=== PATIENT | male | born 1960 ===

== ENCOUNTER 2020-11-14 06:45 | Outpatient (CLI) | payer BC | END 2020-11-14 23:59 | disposition home or self-care (01) | LOC: LAB 06:45 | PROVIDERS: ATTEND Internal Medicine Gastroenterology | DX: Z01.812 Encounter for preprocedural laboratory examination (principal); Z20.822 Contact with and (suspected) exposure to COVID-19 ==

== ENCOUNTER 2020-11-17 13:38 | Day surgery (SDC) | payer BC ==
[2020-11-17] MEDS ORDERED: PROPOFOL 200 MG/20 ML BOTTLE IV ONE (13:39)
[2020-11-17] MEDS ORDERED: IRR STERIL WATER FOR IRR 1000 ML BOTTLE IR ONE (13:39)
[2020-11-17] MEDS ORDERED: LIDOCAINE-MPF 2% 5 ML VIAL IJ ONE (13:39)
[2020-11-17 14:17] LABS: CREATININE 1.5 mg/dL (0.6-1.3); POTASSIUM 3.8 mmol/L (3.5-5.1)
[2020-11-17 14:22] LABS: BILIRUBIN,TOTAL 1.2 mg/dL (0.2-1.0); TOTAL PROTEIN, SERUM 7.9 g/dL (6.4-8.2)
[2020-11-17 14:23] LABS: HEMATOCRIT 40.9 % (36.7-47.1); MEAN CORPUSCULAR HEMOGLOBIN 20.7 uug (23.8-33.4); MEAN CORPUSCULAR VOLUME 66.5 fL (73.0-96.2); PLATELET COUNT (AUTO) 218 K/uL (152-348)
[2020-11-17 14:24] LABS: *BILIRUBIN,URIN NEGATIVE (NEGATIVE); *BLOOD, URINE NEGATIVE (NEGATIVE); *CLARITY,URINE CLEAR (CLEAR); *COLOR,URINE YELLOW (YELLOW); *KETONES,URINE NEGATIVE (NEGATIVE); *UROBILINOGEN,URINE 0.2 E.U./dl (NORMAL); LEUKOCYTE ESTERASE ,URINE NEGATIVE (NEGATIVE); NITRITE, URINE NEGATIVE (NEGATIVE); PH,URINE 5.5 (5.0-8.0); UGLUCOSE NEGATIVE (NEGATIVE)
== END 2020-11-17 17:00 | disposition home or self-care (01) ==
LOC: DS 13:38
PROVIDERS: ATTEND Internal Medicine Gastroenterology
DX: Z12.11 Encounter for screening for malignant neoplasm of colon (principal); K64.8 Other hemorrhoids; K63.89 Other specified diseases of intestine; Z79.899 Other long term (current) drug therapy; Z98.890 Other specified postprocedural states
CPT/HCPCS: 36415; 45378; 71045; 80053; 81003; 85025; 85730; 93005; J7120; A4217; A4663; J3490

== ENCOUNTER 2021-10-21 17:18 | Emergency (ER) | payer BC ==
[~2021-10-21] VITALS: Ht 172.7 cm; Wt 72.6 kg
[2021-10-21] MEDS ORDERED: ONDANSETRON 4 MG/2 ML VIAL ONE (17:27)
[2021-10-21] MEDS ORDERED: MORPHINE SULFATE 4 MG/1 ML DISP.SYRIN ONE ×2 (17:27→19:13)
[2021-10-21 17:41] LABS: HEMATOCRIT 39.1 % (36.7-47.1); MEAN CORPUSCULAR HEMOGLOBIN 24.7 uug (23.8-33.4); MEAN CORPUSCULAR VOLUME 74.5 fL (73.0-96.2); PLATELET COUNT (AUTO) 181 K/uL (152-348)
[2021-10-21] MEDS ORDERED: ONDANSETRON 4 MG/2 ML VIAL IV ONE (17:45)
[2021-10-21] MEDS ORDERED: MORPHINE SULFATE 4 MG/1 ML DISP.SYRIN IV ONE ×2 (17:45→19:15)
[2021-10-21 17:50] LABS: CREATININE 1.2 mg/dL (0.6-1.3); POTASSIUM 3.4 mmol/L (3.5-5.1)
[2021-10-21 17:55] LABS: BILIRUBIN,TOTAL 0.9 mg/dL (0.2-1.0); TOTAL PROTEIN, SERUM 7.4 g/dL (6.4-8.2)
--- NOTE | 2021-10-21 19:10 | NUR ---
change of shift report received from Rianna MCDONALD
[2021-10-21] MEDS ORDERED: IV NORMAL SALINE 500 ML BAG IV ONE (19:15)
[2021-10-21] MEDS ORDERED: IV NORMAL SALINE 250 ML IV ONE (19:55)
[2021-10-21] MEDS ORDERED: SWABABLE VALVE TRANSFER SET EA MC ONE (19:55)
[2021-10-21] MEDS ORDERED: IOHEXOL 300MG/ML 100 ML INFUS..BTL ONE (19:55)
[2021-10-21] MEDS ORDERED: LIDO30AD10 TP ×2 (21:03→21:26)
[2021-10-21] MEDS ORDERED: BACL10TA PO ×2 (21:03→21:26)
[2021-10-21] MEDS ORDERED: HYDR-3980 PO ×2 (21:03→21:26)
[2021-10-21] MEDS ORDERED: LIDOCAINE 5% PATCH TD ONE ×2 (21:15→21:18)
[2021-10-21] MEDS ORDERED: HYDROCODONE/APAP 5-325MG TABLET PO ONE (21:15)
[2021-10-21] MEDS ORDERED: HYDROCODONE/APAP 5-325MG TABLET ONE (21:18)
--- NOTE | 2021-10-21 21:37 | NUR ---
Patient discharged to home in stable condition. Written and verbal after care instructions given. Patient verbalizes understanding of instructions. Stressed follow up or return to ER for worsening s/s. Patient is a/ox4, NAD noted, patient is able to walk with a walker. Patient is accompanied by his SO
[2021-10-21 21:39] VITALS: BP 138/87
== END 2021-10-21 21:39 | disposition home or self-care (01) ==
LOC: ER 17:19
DX: S32.019A Unspecified fracture of first lumbar vertebra, initial encounter for closed fracture (principal); S32.029A Unspecified fracture of second lumbar vertebra, initial encounter for closed fracture; S32.039A Unspecified fracture of third lumbar vertebra, initial encounter for closed fracture; S13.4XXA Sprain of ligaments of cervical spine, initial encounter; V49.40XA Driver injured in collision with unspecified motor vehicles in traffic accident, initial encounter; Y92.414 Local residential or business street as the place of occurrence of the external cause; K59.00 Constipation, unspecified
CPT/HCPCS: 99285; 70450; 96374; 71045; 96375; 80053; 85025; 85610; 36415; 71260; 72125; 74177; 96376; J2405; Q9967; J2270 ×2; J7040; A4663